=== PATIENT | female | born 1935 | race Caucasian/White ===

== ENCOUNTER → 2017-12-14 | Outpatient (CLI) | payer MEDICARE | END | disposition home or self-care (01) | LOC: PCVCIMAG 14:15 | DX: I48.0 Paroxysmal atrial fibrillation (principal); I10 Essential (primary) hypertension; E78.00 Pure hypercholesterolemia, unspecified; E11.9 Type 2 diabetes mellitus without complications; Z79.899 Other long term (current) drug therapy; Z79.84 Long term (current) use of oral hypoglycemic drugs | CPT/HCPCS: 80061; 93005; 93306; G0463 ==

== ENCOUNTER → 2017-12-21 | Outpatient (CLI) | payer MEDICARE | END | disposition home or self-care (01) | LOC: PCVCCLINIC 12:50 | DX: I48.0 Paroxysmal atrial fibrillation (principal); I10 Essential (primary) hypertension; E11.9 Type 2 diabetes mellitus without complications; R94.31 Abnormal electrocardiogram [ECG] [EKG]; E78.5 Hyperlipidemia, unspecified; Z79.899 Other long term (current) drug therapy | CPT/HCPCS: 93005; G0463 ==

== ENCOUNTER → 2018-01-04 | Outpatient (CLI) | payer MEDICARE | END | disposition home or self-care (01) | LOC: PCVCCLINIC 13:37 | DX: I48.0 Paroxysmal atrial fibrillation (principal); I10 Essential (primary) hypertension; E78.00 Pure hypercholesterolemia, unspecified; E11.9 Type 2 diabetes mellitus without complications; R94.31 Abnormal electrocardiogram [ECG] [EKG]; Z79.899 Other long term (current) drug therapy; Z79.84 Long term (current) use of oral hypoglycemic drugs | CPT/HCPCS: 93005; G0463 ==

== ENCOUNTER → 2018-04-06 | Outpatient (CLI) | payer MEDICARE | END | disposition home or self-care (01) | LOC: PCVCIMAG 14:29 | DX: I48.0 Paroxysmal atrial fibrillation (principal); I34.0 Nonrheumatic mitral (valve) insufficiency; I10 Essential (primary) hypertension; Z88.8 Allergy status to other drugs, medicaments and biological substances; Z79.899 Other long term (current) drug therapy; Z79.84 Long term (current) use of oral hypoglycemic drugs | CPT/HCPCS: 93005; 93308; G0463 ==

== ENCOUNTER → 2018-06-03 | Outpatient (CLI) | payer MEDICARE | END | disposition home or self-care (01) | LOC: PCVCCLINIC 11:24 | PROVIDERS: ATTEND Internal Medicine Cardiovascular Disease | DX: I27.20 Pulmonary hypertension, unspecified (principal); I48.0 Paroxysmal atrial fibrillation; E78.5 Hyperlipidemia, unspecified; I10 Essential (primary) hypertension; R94.31 Abnormal electrocardiogram [ECG] [EKG]; Z88.8 Allergy status to other drugs, medicaments and biological substances; Z79.84 Long term (current) use of oral hypoglycemic drugs; Z79.899 Other long term (current) drug therapy | CPT/HCPCS: 80061; 93005; G0463 ==

== ENCOUNTER → 2018-06-08 | Outpatient (CLI) | payer MEDICARE ==
--- NOTE | 2018-06-09 12:39 | PCVCIMAG ---
APPROVED REPORT Study performed: 06/08/2018 14:32:41 EXAM: Comprehensive 2D, Doppler, and color-flow Echocardiogram Patient Location: Echo lab Status: routine BSA: 1.63 HR: 68 bpmBP: 118/70 mmHg Rhythm: Atrial Flutter Other Information Study Quality: Adequate Indications Dyspnea pulmonary HTN, parox A Fib, assess PAP 2D Dimensions LVEF(%): 26.29 (>50%) IVSd: 10.69 (7-11mm) LVDd: 41.00 mm PWd: 10.54 (7-11mm) LVDs: 36.08 (25-40mm) Left Atrium: 41.69 (27-40mm) Aortic Root: 28.41 mm LV Single Plane 4CH: 54.46 % LV Single Plane 2CH: 54.87 %Rasheed's LVEF: 54.67 % Biplane EF: 54.2 % Volumes Left Atrial Volume (Systole) Single Plane 4CH: 52.46 mLSingle Plane 2CH: 51.98 mL LA ESV Index: 40.00 mL/m2 Aortic Valve AoV Peak Robert.: 1.44 m/s AO Peak Gr.: 8.24 mmHg Mitral Valve E/A Ratio: 3.1 MV Decel. Time: 173.04 ms MV E Max Robert.: 1.19 m/s MV A Robert.: 0.39 m/s MV PHT: 50.18 ms Pulmonary Valve PV Peak Robert.: 0.85 m/sPV Peak Gr.: 2.86 mmHg Pulmonary Vein P Vein S: 0.26 m/s P Vein D: 0.71 m/s P Vein S/D Ratio: 0.37 Tricuspid Valve TR Peak Robert.: 3.59 m/s TR Peak Gr.: 51.43 mmHg Left Ventricle The left ventricle is normal size. There is normal LV segmental wall motion. There is normal left ventricular wall thickness. Left ventricular systolic function is normal. The left ventricular ejection fraction is within the normal range. LVEF is 55%. The left ventricular diastolic function is normal. Right Ventricle The right ventricle is normal size. The right ventricular systolic function is normal. Atria Left atrium is mildly dilated. The right atrium size is normal. Aortic Valve The aortic valve is normal in structure. Mild aortic regurgitation. There is no aortic valvular stenosis. Mitral Valve The mitral valve is normal in structure. Mild mitral regurgitation. No evidence of mitral valve stenosis. Tricuspid Valve The tricuspid valve is normal in structure. Mild-moderate tricuspid regurgitation with PAP elevated to 55 mmHg. Pulmonic Valve The pulmonary valve is normal in structure. There is no pulmonic valvular regurgitation. Great Vessels The aortic root is normal in size. IVC is normal in size and collapses with >50% inspiration Pericardium There is no pericardial effusion. There is no pleural effusion. <Conclusion> The left ventricle is normal size. LVEF is 55%. The left ventricular diastolic function is normal. The right ventricle is normal size. Left atrium is mildly dilated. Mild aortic regurgitation. Mild mitral regurgitation. Mild-moderate tricuspid regurgitation with PAP elevated to 55 mmHg. There is no pulmonic valvular regurgitation. IVC is normal in size and collapses with >50% inspiration There is no pericardial effusion.
== END | disposition home or self-care (01) ==
LOC: PCVCIMAG 15:57
PROVIDERS: ATTEND Internal Medicine Cardiovascular Disease
DX: I08.3 Combined rheumatic disorders of mitral, aortic and tricuspid valves (principal); I27.20 Pulmonary hypertension, unspecified; I48.0 Paroxysmal atrial fibrillation; R06.09 Other forms of dyspnea; I10 Essential (primary) hypertension
CPT/HCPCS: 93306

== ENCOUNTER → 2018-08-09 | Outpatient (CLI) | payer MEDICARE | END | disposition home or self-care (01) | LOC: PCVCCLINIC 14:55 | PROVIDERS: ATTEND Internal Medicine Cardiovascular Disease | DX: I48.0 Paroxysmal atrial fibrillation (principal); I10 Essential (primary) hypertension; E11.9 Type 2 diabetes mellitus without complications; I27.20 Pulmonary hypertension, unspecified; Z79.84 Long term (current) use of oral hypoglycemic drugs | CPT/HCPCS: 93005; G0463 ==